=== PATIENT | male | born 1960 | race Caucasian/White ===

== ENCOUNTER 2019-11-29 11:00 | Emergency (ER) | payer MEDICAID, OTHER ==
[~2019-11-29] VITALS: Ht 172.7 cm; Wt 77.1 kg
[2019-11-29 11:12] VITALS: BP 172/117
[2019-11-29] MEDS ORDERED: SODIUM CHLORIDE 0.9% 1,000 ML IV ONE (11:15)
[2019-11-29] MEDS ORDERED: ONDANSETRON HCL 4 MG/2 ML VIAL IV ONE (11:15)
[2019-11-29] MEDS ORDERED: FOLIC ACID 1 MG, MULTIPLE VITAMIN 10 ML, MAGNESIUM SULF SDV 50% 8 MEQ, THIAMINE INJ 100... INJ STA ×5 (11:15)
[2019-11-29 12:16] LABS: Basophils # (auto) 0 uL; Basophils % (auto) 0.5 % (0.0-2.0); Eosinophils # (auto) 0 uL; Eosinophils % (auto) 0.1 % (0.0-7.0); Hematocrit 43.1 % (41.0-53.0); Hemoglobin 14.5 g/dL (13.5-17.5); Lymphocytes # (auto) 1.7 uL; Lymphocytes % (auto) 29.3 % (10.0-50.0); Mean Corpuscular Hemoglobin 30.1 pg (28.0-32.0); Mean Corpuscular Hgb Conc. 33.6 g/dL (32.0-36.0); Mean Corpuscular Volume 89.7 fL (80.0-100.0); Monocytes # (auto) 0.3 uL; Monocytes % (auto) 4.6 % (0.0-12.0); Neutrophils # (auto) 3.8 uL; Neutrophils % (auto) 65.5 % (37.0-80.0); Platelet Count (auto) 243 10^3/uL (140-450); Red Blood Cells 4.81 10^6/uL (4.5-5.90); Red Cell Distribution Width 15.1 % (11.8-14.3); White Blood Cell 5.8 10^3/uL (4.4-10.8)
[2019-11-29 12:39] LABS: Salicylate < 1.7 mg/dL (2.8-20.0)
[2019-11-29 12:41] LABS: Albumin 3.6 g/dL (3.4-5.0); Calcium 7.7 mg/dL (8.5-10.1); Potassium 3.6 mmol/L (3.5-5.1)
[2019-11-29 12:42] LABS: BUN/Creatinine Ratio 8.9
[2019-11-29 12:45] LABS: Bilirubin, Total 0.4 mg/dL (0.2-1.0)
[2019-11-29 12:46] LABS: Acetaminophen < 2.0 ug/mL (10-30)
== END 2019-11-29 12:40 | disposition left against medical advice (07) ==
LOC: EDBD 11:00 → ER 11:00
DX: F10.129 Alcohol abuse with intoxication, unspecified (principal); K70.30 Alcoholic cirrhosis of liver without ascites; I10 Essential (primary) hypertension; Y90.8 Blood alcohol level of 240 mg/100 ml or more
CPT/HCPCS: 36415; 80053; 80320; 80329; 83735; 85025; 99283; J3411; J3475; J7070

== ENCOUNTER 2020-05-06 19:22 | Emergency (ER) | payer MEDICAID ==
[~2020-05-06] VITALS: Ht 170.2 cm; Wt 77.1 kg
[2020-05-06] MEDS ORDERED: SODIUM CHLORIDE 0.9% 1,000 ML IV ONE (19:31)
[2020-05-06] MEDS ORDERED: ONDANSETRON HCL 4 MG/2 ML VIAL IV ONE (19:45)
[2020-05-06] MEDS ORDERED: PANTOPRAZOLE 40 MG/10 ML VIAL INJ IV ONE (19:45)
[2020-05-06] MEDS ORDERED: LORazepam 2MG/ML-1ML VIAL IV ONE (19:45)
[2020-05-06 20:13] LABS: Basophils # (auto) 0.1 10 ^3/uL (0-0.2); Eosinophils # (auto) 0 10 ^3/uL (0-0.8); Hemoglobin 14.2 g/dL (13.5-17.5); Lymphocytes # (auto) 1.4 10 ^3/uL (0.4-5.4); White Blood Cell 6.6 10^3/uL (4.4-10.8)
[2020-05-06 20:15] LABS: Hematocrit 43.8 % (41.0-53.0); Lymphocytes % (auto) 21.9 % (10.0-50.0); Mean Corpuscular Hemoglobin 28.5 pg (28.0-32.0); Mean Corpuscular Hgb Conc. 32.4 g/dL (32.0-36.0); Monocytes # (auto) 0.5 10 ^3/uL (0-1.3); Neutrophils # (auto) 4.6 10 ^3/uL (1.6-8.6); Neutrophils % (auto) 70.1 % (37.0-80.0); Platelet Count (auto) 643 10^3/uL (140-450); Red Blood Cells 4.98 10^6/uL (4.5-5.90); Red Cell Distribution Width 19.1 % (11.8-14.3)
[2020-05-06 20:31] LABS: BUN/Creatinine Ratio 6.6; Calcium 8.7 mg/dL (8.5-10.1); Potassium 3.4 mmol/L (3.5-5.1)
[2020-05-06 20:33] LABS: Bilirubin, Total 0.4 mg/dL (0.2-1.0); Total Protein 9.3 g/dL (6.4-8.2)
[2020-05-06 21:05] LABS: Urine Bacteria FEW /hpf (None Seen); Urine Blood 2+ /uL (Negative); Urine Hyaline Cast FEW /lpf (0 - 2); Urine Mucus FEW (None Seen); Urine WBC 10 /hpf (0 - 3)
[2020-05-06 21:19] LABS: Amphetamine Screen, Urine NEGATIVE (NEGATIVE); Barbiturate Scree,Urine NEGATIVE (NEGATIVE); Benzodiazephine Screen, Urine NEGATIVE (NEGATIVE); Cannabinoid Screen, Urine NEGATIVE (NEGATIVE); Cocaine Screen, Urine NEGATIVE (NEGATIVE); Opiate Scree,Urine NEGATIVE (NEGATIVE); Phencyclidine Screen, Urine NEGATIVE (NEGATIVE)
[2020-05-06 23:00] VITALS: BP 146/98
== END 2020-05-07 00:30 | disposition home or self-care (01) ==
LOC: EDUNIT# 19:22 → EDBD 19:22 → ER 19:22
DX: F10.239 Alcohol dependence with withdrawal, unspecified (principal); R11.2 Nausea with vomiting, unspecified; R10.9 Unspecified abdominal pain; I10 Essential (primary) hypertension; Y90.9 Presence of alcohol in blood, level not specified
CPT/HCPCS: 36415; 80053; 80307; 80320; 81001; 85025; 96361; 96374; 96375; 99284; C9113; J2060; J2405

== ENCOUNTER 2022-02-18 14:06 | Emergency (ER) | payer MEDICAID ==
[~2022-02-18] VITALS: Ht 170.2 cm; Wt 68.0 kg
[2022-02-18 14:11] VITALS: BP 155/110
[2022-02-18] MEDS ORDERED: chlordiazePOXIDE HCL 5 MG CAP PO ONE (14:45)
[2022-02-18] MEDS ORDERED: LABETALOL HCL 5 MG/ML 4ML SYRINGE IV ONE (14:45)
[2022-02-18] MEDS ORDERED: THIAMINE 100mg/ml INJ (200mg/2ml VIAL) IV ONE (14:45)
[2022-02-18] MEDS ORDERED: SODIUM CHLORIDE 0.9% 1,000 ML IV ONE ×2 (14:45)
== END 2022-02-18 18:06 | disposition left against medical advice (07) ==
LOC: ER 14:06 → EDUNIT# 14:06 → EDBD 14:06 → ER 18:06
DX: F10.10 Alcohol abuse, uncomplicated (principal); I16.1 Hypertensive emergency; E86.0 Dehydration; Y90.8 Blood alcohol level of 240 mg/100 ml or more